=== PATIENT | female | born 1955 | race African-American/Black ===

== ENCOUNTER 2016-12-20 15:53 | Emergency (ER) | payer OTHER ==
--- NOTE | ~2016-12-20 | US85 ---
[facility] A Service of [facility] & [facility] RADIOLOGY TEXT RESULTS PATIENT: KATHERINE SANZ LOCATION: CFTX : 53 UNIT #: [id number] AGE: [address]: Adriana Moreno MD SEX: F ORDER DR: [id number] [facility] [address] [place], [place] [address] [id number] E MR#: [id number] Acc #: [id number] NAME: KATHERINE SANZ : 1955 SEX: F STUDY DATE/TIME: 12/20/2016 15:17 UNIT: CFTX ROOM: STUDY DESCRIPTION: [facility] Attending Physician: Adriana Moreno M.D. Ordering Physician: Adriana Moreno M.D. Primary Care Physician: Sal Vo M.D. MEDICAL IMAGING REPORT This report is preliminary unless electronic signature is present EXAM Left leg vein Doppler 12/20 INDICATIONS Left leg swelling for 1 month. TECHNIQUE Venous ultrasound examination of the left lower extremity was performed using grayscale, spectral Doppler and color flow Doppler imaging. FINDINGS The examination is negative. There is no evidence of left lower extremity deep venous thrombus from the groin to the lower calf. Visualized greater saphenous vein is also patent. IMPRESSION Negative examination. No evidence of left lower extremity deep venous thrombosis. Dictated by... Hi Castro Jr., M.D. THIS IS AN ELECTRONICALLY VERIFIED REPORT Hi Castro Jr., M.D. at 12/21/2016 4:46 PM KIMBERLY/rob TD: 12/20/2016 16:46 JOB #: [id number] MEDICAL IMAGING REPORT Page 1 of 1 COPY
[~2016-12-20 15:53] MED LIST: ALBUTEROL17 GM INH; BACTRIM DS TABL1 TA1 PO; CALCIUM CARBON600 M1 PO; CARTIA XT PO; DESYREL50 M1 PO; DESYREL50 MG PO; DILTIAZEM ER120 M3 PO; DOXYCYCLINE150 MG PO; DULERA 100 MCG/13 GM IH; FLEXERIL10 M1 PO; HYCODAN60 ML 5MG/ PO; HYDROCHLOROTH12.5 MG PO; K-DUR20 ME1 PO; KAY CIEL20 MEQ/15 PO; LASIX20 MG PO; LOPRESSOR PO; LORTAB 5/500 TA1 TA1 PO; MEDROL DOSEPAK4 MG DOB; METOPROLOL TAR25 MG PO; MIRALAX17 G1 PO; MOBIC PO; PRILOSEC20 MG PO; ZANAFLEX4 M1 PO; ZITHROMAX PO
== END 2016-12-20 16:30 | disposition home or self-care (01) ==
LOC: CFTX 15:53
DX: R60.0 Localized edema (principal); J45.909 Unspecified asthma, uncomplicated; I10 Essential (primary) hypertension
CPT/HCPCS: 93971; 99284